=== PATIENT | male | born 1940 | race Caucasian/White ===

== ENCOUNTER 2023-10-14 13:20 | Emergency (ER) | payer MEDICARE, BC, SELFPAY ==
[2023-10-14 13:23] VITALS: BP 142/60
[2023-10-14 13:24] VITALS: BP 142/60
[2023-10-14 13:41] LABS: % Basophils 0.2 % (0-2); % Immature Granulocytes 0.7 % (0-0.5); % Lymphocytes 5.8 % (20.5-51.1); % Monocytes 13.8 % (1.7-9.3); % Neutrophils 79.5 % (42.2-75.2); Absolute Immature Granulocytes 0.1 10^3/uL (0-0.05); Absolute Lymphocytes 0.6 10^3/uL (1.2-3.4); Absolute Monocytes 1.4 10^3/uL (0.1-0.6); Absolute Neutrophils 7.9 10^3/uL (1.4-6.5); Hematocrit 38.5 % (39.0-52.0); Mean Corp Hgb Conc. 36.4 g/dL (33.0-37.0); Mean Corpuscular Hgb 32.1 pg (27.0-31.0); Mean Corpuscular Volume 88.3 fL (80.0-94.0); Mean Platelet Volume 9.1 fL (7.4-10.4); Nucleated Red Blood Cells % 0 % (-); Platelet Count 141 10^3/uL (130-400); Red Blood Cell Count 4.36 10^6/uL (4.70-6.10); Red Cell Dist. Width 12.6 % (11.5-14.5); White Blood Cell Count 9.9 10^3/uL (4.8-10.8)
[2023-10-14 13:53] LABS: ALT (SGPT) 24 U/L (0-50); AST (SGOT) 38 U/L (17-59); Albumin 4.3 g/dl (3.5-5.0); Alkaline Phosphatase 66 U/L (38-126); Blood Urea Nitrogen 21 mg/dl (9-20); Calcium 9.5 mg/dl (8.4-10.2); Carbon Dioxide 27 mmol/L (22-30); Chloride 98 mmol/L (98-107); Glucose 112 mg/dl (70-99); Potassium 3.8 mmol/L (3.5-5.1); Sodium 132 mmol/L (135-145); Total Bilirubin 3.2 mg/dl (0.2-1.3); Total Protein 7.1 g/dl (6.3-8.2); eGFR > 60.00
[2023-10-14 13:57] LABS: Urine Albumin Negative (Neg - Trace); Urine Bilirubin Negative (Negative); Urine Character Clear (Clear); Urine Color Yellow; Urine Glucose Negative (Negative); Urine Ketone 1+ (Negative); Urine Leukocyte Negative (Negative); Urine Nitrite Negative (Negative); Urine Occult Blood 2+ (Negative); Urine Urobilinogen Negative (Neg - 1+)
[2023-10-14 14:01] VITALS: BP 141/65
[2023-10-14] MEDS: MOTRIN 600 MG PO (14:01)
[2023-10-14 14:45] LABS: Urine Mucus Few
[2023-10-14 14:46] LABS: Urine Amorphous Seen
[2023-10-14 14:47] LABS: Urine Bacteria Few (Negative); Urine Red Blood Cell 16-20 /HPF (0-2); Urine White Cell 0-2 /HPF (0-5)
[2023-10-14 15:00] VITALS: BP 136/74
[2023-10-14 15:28] LABS: COVID-19 Antigen Positive (Negative)
--- NOTE | 2023-10-14 15:40 | ED.GENMED ---
History of Present Illness
General
Chief Complaint: Change in Mental Status
Source: patient
Exam Limitations: none
Time Seen by Provider: 10/14/23 13:30
Nursing documentation reviewed up to this point in time: agreed with
Travel History
Have you had any contact with someone who has COVID-19?: No
Do you have any symptoms of coronavirus? Fever > 100 degrees, chills, cough, shortness of breath, sore throat, loss of taste or smell, muscle aches, or headache?: No
History of Present Illness
History of Present Illness:
pt is a 82 y/o M with h/o pacer, HTN,
here from via EMS for fever, bodyaches, fatigue and there was found to have covid 19
pt apparently lives alone and the staff at the urgent care thought he was confused and not safe to go home
pt doesnt know why he was sent
Phy Exam
Physical Exam
Physical Exam:
GENERAL: Alert , in no apparent distress
EYE: pupils equal and reactive
NECK: Supple
ENT: b/l TM s clear, pharynx erythematous but no tonsillar hypertrophy or exudates
CARDIAC: Regular rate and rhythm, no edema
LUNGS: Clear breath sounds bilaterally, no acute respiratory distress, no wheezes/rales/rhonchi, occ cough
ABDOMEN: Soft, without focal tenderness, no r/g, no cvat, normal bowel sounds
NEUROLOGICAL: Alert and oriented, no focal neuro deficits, cranial nerves intact, send strength and sensation intact, ambulation normal
SKIN: Warm and dry, skin intact.
MUSCULOSKELETAL: No edema, well perfused.
PSYCH: Normal and appropriate interaction.
Course
Orders/Labs/Results
Orders:
Orders
10/14/23 13:34
CMP [Comprehensive Metabolic Panel] Urgent
Complete Blood Count/With Diff Urgent
Urinalysis Reflex To Culture Urgent
Date Specimen was Collected: 10/14/23
Time Specimen was Collected: 13:33
Urine Microscopic Reflex Cult Urgent
10/14/23 13:55
Ibuprofen [Motrin] 600 mg PO NOW STA
CR Chest - 2 Views Urgent
Comment:
Reason For Exam: covid, confusion
10/14/23 15:01
COVID-19 Antigen Urgent
Source: Nasal Swab
Abnormal Lab Results
10/14/23 10/14/23
13:34 15:01
RBC 4.36 L 10^6/uL
(4.70-6.10)
Hct 38.5 L %
(39.0-52.0)
MCH 32.1 H pg
(27.0-31.0)
Abs Immat Gran (auto) 0.1 H 10^3/uL
(0-0.05)
Absolute Neuts (auto) 7.9 H 10^3/uL
(1.4-6.5)
Absolute Lymphs (auto) 0.6 L 10^3/uL
(1.2-3.4)
Absolute Monos (auto) 1.4 H 10^3/uL
(0.1-0.6)
Immature Gran % 0.7 H %
(0-0.5)
Neutrophils % 79.5 H %
(42.2-75.2)
Lymphocytes % 5.8 L %
(20.5-51.1)
Monocytes % 13.8 H %
(1.7-9.3)
Sodium 132 L mmol/L
(135-145)
BUN 21 H mg/dl
(9-20)
Glucose 112 H mg/dl
(70-99)
Total Bilirubin 3.2 H mg/dl
(0.2-1.3)
Urine Ketones 1+ A
(Negative)
Ur Occult Blood Reflex 2+ A
(Negative)
Urine RBC 16-20 A /HPF
(0-2)
Urine Bacteria (Reflex) Few A
(Negative)
SARS-CoV-2 Antigen Positive A
(Negative)
10/14/23 13:34
10/14/23 13:34
Vital Signs
Initial and Last Documented VS:
Initial Vital Signs
Temp Pulse Resp BP Pulse Ox
99.3 F 67 18 142/60 97
10/14/23 13:23 10/14/23 13:23 10/14/23 13:23 10/14/23 13:23 10/14/23 13:23
Last Documented Vital Signs
Temp Pulse Resp BP Pulse Ox
98.4 F 60 16 136/74 95
10/14/23 16:06 10/14/23 15:45 10/14/23 15:45 10/14/23 15:00 10/14/23 15:45
MDM/Problems Addressed
Differential Diagnosis Includes:
covid, uti, TME,
MDM/Problems Addressed:
2-year-old male from urgent care with known COVID infection, presented there originally for body aches and a low-grade temperature but they found him to be slightly confused. He does not live with anybody and they did not contact any family to find
his baseline mental status. Patient says he feels quite well and does want to go home. 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
The patient's bili is 3 which is around his baseline. He is followed by GI doctor for this.
Patient's not hypoxic, his chest x-ray was negative. He had ambulatory pulse ox that is normal. From a COVID perspective the patient does not require admission. I reached out to his [id number] who calls him every day and knows him very well
and was able to tell me that this is his baseline. She said his COVID symptoms sounded mild to begin with and the minimal forgetfulness or confusion is chronically him and there is nothing to be concerned about as far as the change in mental status
goes. She will come and get him and be sure that he does not have any new changes and feels comfortable checking on him daily.
Patient was discharged home with stable vital signs
*Critical Care Note
Total Time (30-74mins, 75-104mins- exclusive of procedures): Not Applicable
ED Attending Note
-
Portions of this chart may have been created with voice recognition software.� Occasional wrong word or��sound alike� substitutions may have occurred due to the inherent limitations of voice recognition software.
Discharge Plan
Departure
Patient Disposition: Home (Routine Discharge)
Date of Disposition: 10/14/23
Time of Disposition: 16:04
Patient with high blood pressure during this ER visit?: No
Condition: Fair
Covid-19: Suspected COVID-19
Discharge Problem:
COVID-19
Instructions: COVID-19 (DC)
Prescriptions:
No Action
prednisone 20 mg tablet
40 mg PO DAILY 5 Days Qty: 10 0RF
Referrals:
Coni Rose MD [Family Provider] - Follow up in 2-3 days
Activity Restrictions/Additional Instructions:
YOU HAVE COVID 19
YOU CAN TAKE MOTRIN 400 MG 2-3 TIMES A DAY (OVER THE COUNTER, GET AT A PHARMACY) NEEDED FOR BODYACHES AND FEVER
YOU CAN ALSO USE COUGH SYRUP IF YOU'D LIKE
DRINK FLUIDS AND REST
STAY HOME UNTIL FEVER FREE FOR 24 HOURS
RETURN FOR: WORSENING COUGH, SHORTNESS OF BREATH, VOMITING, DEHYDRATION, CONFUSION, FEVRE, OR ANY CONCERNS.
Interventions
Interventions:
*Risk Screen - Suicide Last Done: 10/14/23 13:23
*General Assessment Last Done: 10/14/23 13:23
*Neglect/Abuse Screening Last Done: 10/14/23 13:23
ED- Fall Risk Assessment Last Done: 10/14/23 15:34
*ED COVID-19 Vaccine History Last Done: 10/14/23 13:23
*Nursing Disposition Last Done: 10/14/23 16:21
ED- Neurological Assessment Last Done: 10/14/23 13:23
Discharge Date and Time
Discharge Date/Time: 10/14/23 16:22
== END 2023-10-14 16:22 | disposition home or self-care (01) ==
LOC: EMR 13:20
PROVIDERS: Physician Assistant; EMERGENCY PHYSICIAN Emergency Medicine; FAMILY PHYSICIAN Internal Medicine
DX: U07.1 COVID-19 (principal); I10 Essential (primary) hypertension; Z60.2 Problems related to living alone
CPT/HCPCS: 99283; 71046; 80053; 81003; 81015; 85025; 87811

== ENCOUNTER 2023-10-17 00:20 | Emergency (ER) | payer MEDICARE, BC, SELFPAY ==
[2023-10-17 00:23] VITALS: BMI 24.7
[2023-10-17 00:27] VITALS: BP 161/78
[2023-10-17 00:27] LABS: Glucose - Point of Care 132 mg/dl (70-99)
[2023-10-17 00:28] VITALS: BP 161/78
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
[2023-10-17 00:37] LABS: % Basophils 0.2 % (0-2); % Eosinophils 0.1 % (0-6); % Immature Granulocytes 0.6 % (0-0.5); % Lymphocytes 16.3 % (20.5-51.1); % Monocytes 14.4 % (1.7-9.3); % Neutrophils 68.4 % (42.2-75.2); Absolute Immature Granulocytes 0.1 10^3/uL (0-0.05); Absolute Lymphocytes 1.4 10^3/uL (1.2-3.4); Absolute Monocytes 1.2 10^3/uL (0.1-0.6); Absolute Neutrophils 5.8 10^3/uL (1.4-6.5); Hematocrit 43.6 % (39.0-52.0); Hemoglobin 15.8 g/dL (13.0-18.0); Mean Corp Hgb Conc. 36.2 g/dL (33.0-37.0); Mean Corpuscular Hgb 31.8 pg (27.0-31.0); Mean Corpuscular Volume 87.7 fL (80.0-94.0); Nucleated Red Blood Cells % 0 % (-); Platelet Count 171 10^3/uL (130-400); Red Blood Cell Count 4.97 10^6/uL (4.70-6.10); Red Cell Dist. Width 12.4 % (11.5-14.5); White Blood Cell Count 8.5 10^3/uL (4.8-10.8)
[2023-10-17 00:53] LABS: ALT (SGPT) 66 U/L (0-50); AST (SGOT) 101 U/L (17-59); Albumin 4.4 g/dl (3.5-5.0); Alkaline Phosphatase 56 U/L (38-126); Blood Urea Nitrogen 38 mg/dl (9-20); Calcium 9.6 mg/dl (8.4-10.2); Carbon Dioxide 24 mmol/L (22-30); Chloride 103 mmol/L (98-107); Estimated Creatinine Clearance 47 ml/min; Glucose 125 mg/dl (70-99); Potassium 3.8 mmol/L (3.5-5.1); Sodium 135 mmol/L (135-145); Total Protein 7.6 g/dl (6.3-8.2); eGFR > 60.00
--- NOTE | 2023-10-17 04:13 | DOWNTIME ---
There was a [employer] Downtime on 10/17/2023 from 0111 to 10/17/2023 at 0405. Downtime documentation of patient's care, including medication administrations, has been reconciled in the electronic record per guidelines. Refer to the
patient's paper chart under the miscellaneous tab to see printed paper medication records and downtime forms.
[2023-10-17 06:45] VITALS: BP 158/72
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
[2023-10-17 11:25] VITALS: BP 151/83
== END 2023-10-17 11:25 | disposition home or self-care (01) ==
LOC: EMR 00:20
PROVIDERS: EMERGENCY PHYSICIAN Emergency Medicine
DX: R41.0 Disorientation, unspecified (principal); U07.1 COVID-19; I49.9 Cardiac arrhythmia, unspecified
CPT/HCPCS: 99284; 70450; 72125; 80053; 82962; 85025

== ENCOUNTER 2024-03-31 12:19 | Emergency (ER) | payer MEDICARE, BC, SELFPAY ==
[2024-03-31 12:29] VITALS: BP 115/53
--- NOTE | 2024-03-31 13:59 | ED.GENMED ---
History of Present Illness
General
Chief Complaint: Crisis Evaluation
Source: patient
Exam Limitations: none
Time Seen by Provider: 03/31/24 13:30
Nursing documentation reviewed up to this point in time: agreed with
History of Present Illness
History of Present Illness:
83-year-old male presents emergency department under 302 for suicidal ideation. He denies any suicidal ideation or plan.
Past History
Past History
ED Past Medical History: Other (Pacemaker)
ED Past Surgical History: Cardiac
Social History
Tobacco: Non-smoker
Alcohol: None
Drug: None
Personal: Single
Living: alone
Employment: Not employed
Phy Exam
Physical Exam
Physical Exam:
Physical Exam
General: no apparent distress, not acutely ill
Neck: supple. no meningeal signs. normal posterior pharynx
Heart: s1/s2 regular rate and rhythm, no murmur. equal radial
pulses.
HEENT: Pupils equal round reactive to light, EOMI
Lungs: no acute respiratory distress. clear bilaterally
Abdomen: normal bowel sounds. not tender. no CVAT
Neuro: alert and oriented. no focal neurological deficits cranial nerves II through XII intact
Skin: no rash
Psychiatric: well kept. interactive and cooperative
Extremities: no edema. no calf tenderness. negative homans. good distal pulses
Course
Orders/Labs/Results
Orders:
Orders
03/31/24 13:58
PSYCHIATRY CONSULT Urgent
Consulting Provider: Maulik Andino
Was physician already notified: Yes
Reason for consult: 302, suicidal ideation
Crisis Consult Urgent
Reason for Consult: 302 for suicidal ideation
Vital Signs
Initial and Last Documented VS:
Initial Vital Signs
Temp Pulse Resp BP Pulse Ox
98.3 F 67 18 115/53 98
03/31/24 12:29 03/31/24 12:29 03/31/24 12:29 03/31/24 12:29 03/31/24 12:29
Last Documented Vital Signs
Temp Pulse Resp BP Pulse Ox
98.3 F 65 16 118/61 99
03/31/24 12:29 03/31/24 14:40 03/31/24 14:40 03/31/24 14:40 03/31/24 14:40
MDM/Problems Addressed
Differential Diagnosis Includes:
Suicide ideation, dementia, agitation
MDM/Problems Addressed:
83-year-old male with agitation, reported suicidal ideation, however none in ED. Patient released from [address] Andino. I also see no indication for involuntary hospitalization.
Chronic conditions affecting care: Other (Dementia)
Acute Exacerbation and/or Progression of Chronic Illness: Other (Dementia)
*Critical Care Note
Total Time (30-74mins, 75-104mins- exclusive of procedures): Not Applicable
Patient Management
Social determinants of health affecting care: Living situation
Escalation/DeEscalation of care consider admission/obs:
Admit not indicated
ED Attending Note
-
Portions of this chart may have been created with voice recognition software.� Occasional wrong word or��sound alike� substitutions may have occurred due to the inherent limitations of voice recognition software.
Discharge Plan
Departure
Patient Disposition: Home (Routine Discharge)
Date of Disposition: 03/31/24
Time of Disposition: 14:33
Patient with high blood pressure during this ER visit?: No
Condition: Good
Discharge Problem:
Agitation due to dementia
Instructions: Dementia ED
Prescriptions:
No Action
potassium chloride 10 mEq Tablet Extended Release
20 meq PO DAILY
amlodipine [Norvasc] 5 mg Tablet
5 mg PO DAILY
clonidine HCl 0.2 mg Tablet
0.2 mg PO BID
pravastatin 20 mg Tablet
20 mg PO HS
hydrochlorothiazide 25 mg Tablet
25 mg PO DAILY
losartan 100 mg Tablet
100 mg PO DAILY
finasteride 5 mg Tablet
5 mg PO DAILY
nebivolol 10 mg Tablet
10 mg PO BID
Referrals:
UNKNOWN - PT DOES,NOT KNOW [Family Provider] -
Interventions
Interventions:
*Risk Screen - Suicide Last Done: 03/31/24 12:27
*General Assessment Last Done: 03/31/24 12:26
*Neglect/Abuse Screening Last Done: 03/31/24 12:27
ED- Fall Risk Assessment Last Done: 03/31/24 14:40
*ED COVID-19 Vaccine History Last Done: 03/31/24 12:26
*Nursing Disposition Last Done: 03/31/24 14:40
ED-Psychological Assessment Last Done: 03/31/24 12:28
Discharge Date and Time
Print Language: LITHUANIAN
[2024-03-31 14:40] VITALS: BP 118/61
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
== END 2024-03-31 15:00 | disposition home or self-care (01) ==
LOC: EMR 12:19
PROVIDERS: CONSULT PHYSICIAN Psychiatry & Neurology Psychiatry; EMERGENCY PHYSICIAN Emergency Medicine
DX: R45.851 Suicidal ideations (principal); F03.911 Unspecified dementia, unspecified severity, with agitation; R45.1 Restlessness and agitation; I10 Essential (primary) hypertension; Z95.0 Presence of cardiac pacemaker
CPT/HCPCS: 99284

== ENCOUNTER 2025-01-28 16:23 | Emergency (ER) | payer MEDICARE, SELFPAY ==
[2025-01-28 16:29] VITALS: BMI 28.8
[2025-01-28 16:30] VITALS: BP 188/82
[2025-01-28 17:00] VITALS: BP 180/84
--- NOTE | 2025-01-28 17:08 | ED.GENMED ---
History of Present Illness
General
Chief Complaint: Change in Mental Status
Source: patient
Exam Limitations: none
Time Seen by Provider: 01/28/25 16:45
Nursing documentation reviewed up to this point in time: agreed with
History of Present Illness
History of Present Illness:
84-year-old male from a adult daycare center he was agitated referred here no trauma no fever only complains of a rash on his back he is looking for his primary care provider who is no longer on staff here no problem urinating no fevers
Past History
Past History
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
ED Past Surgical History: Cardiac
Social History
Tobacco: Non-smoker
Alcohol: None
Drug: None
Personal: Single
Living: alone
Employment: Not employed
Review of Systems
Review of Systems
All Other Systems: Not applicable
Constitutional: Denies fever or chills
EENT: Reports no symptoms
Respiratory: Reports no symptoms
Cardiac: Reports no symptoms
ABD/GI: Reports no symptoms
Skin: Reports itching and rash
Phy Exam
Physical Exam
Physical Exam:
Physical Exam
General: no apparent distress, not acutely ill
Neck: No tongue bite no posterior neck pain
Heart: s1/s2 regular rate and rhythm, no murmur. equal radial pulses.
Lungs: no acute respiratory distress. clear bilaterally
Abdomen: Nontender
Neuro: Moves all extremities, oriented to person
Skin: Red dermatitis over the shoulders/upper back looks like it has been recently scratched
Psychiatric: Slightly suspicious but cooperative
Extremities: no edema.
Course
Orders/Labs/Results
Orders:
Orders
01/28/25 17:05
Lorazepam [Ativan] 0.5 mg PO NOW STA
Quetiapine Fumarate [Seroquel] 25 mg PO NOW STA
01/28/25 17:06
Divalproex Delayed Rel. 12 Hr [Depakote (12 Hr Release)] 375 mg PO NOW STA
01/28/25 18:01
Hydrocortisone [Hydrocortisone 2.5% Ointment] See Dose Instructions TOPICAL NOW STA
Vital Signs
Initial and Last Documented VS:
Initial Vital Signs
Temp Pulse Resp BP Pulse Ox
97.9 F 88 20 188/82 97
01/28/25 16:30 01/28/25 16:30 01/28/25 16:30 01/28/25 16:30 01/28/25 16:30
Last Documented Vital Signs
Temp Pulse Resp BP Pulse Ox
97.9 F 83 17 188/82 98
01/28/25 16:30 01/28/25 16:45 01/28/25 16:45 01/28/25 16:30 01/28/25 16:45
MDM/Problems Addressed
Differential Diagnosis Includes:
Dementia agitation infection no signs of trauma does not look dehydrated
MDM/Problems Addressed:
Agitation and dementia.
Chronic conditions affecting care: Neurological disorder
Acute Exacerbation and/or Progression of Chronic Illness: Neurological disorder
*Critical Care Note
Total Time (30-74mins, 75-104mins- exclusive of procedures): Not Applicable
Update Note
Update Note:
Update, patient's med list reviewed, noted to be comfort measures, he looks comfortable here he is cooperative, he knows he is at the hospital he knows he is in [place] he is afebrile no signs of trauma he does have a second dermatitis on his
back we will start some hydrocortisone given his evening dose of p.o. meds
6 PM reevaluation patient comfortable calm and cooperative
ED Attending Note
-
Portions of this chart may have been created with voice recognition software.� Occasional wrong word or��sound alike� substitutions may have occurred due to the inherent limitations of voice recognition software.
Discharge Plan
Departure
Patient Disposition: Home (Routine Discharge)
Date of Disposition: 01/28/25
Time of Disposition: 18:04
Patient with high blood pressure during this ER visit?: No
Discharge Problem:
Rash
Instructions: Dementia (DC), Dermatitis ( Contact )
Prescriptions:
No Action
potassium chloride 10 mEq Tablet Extended Release
20 meq PO DAILY
amlodipine [Norvasc] 5 mg Tablet
5 mg PO DAILY
clonidine HCl 0.2 mg Tablet
0.2 mg PO BID
pravastatin 20 mg Tablet
20 mg PO HS
hydrochlorothiazide 25 mg Tablet
25 mg PO DAILY
losartan 100 mg Tablet
100 mg PO DAILY
finasteride 5 mg Tablet
5 mg PO DAILY
nebivolol 10 mg Tablet
10 mg PO BID
Referrals:
UNKNOWN - PT DOES,NOT KNOW [Family Provider]
Activity Restrictions/Additional Instructions:
Use hydrocortisone cream twice a day for 5 to 7 days
Continue your other medications as prescribed
Interventions
Interventions:
*Risk Screen - Suicide Last Done: 01/28/25 16:41
*General Assessment Last Done: 01/28/25 16:30
*Neglect/Abuse Screening Last Done: 01/28/25 16:30
*ED- Fall Risk Assessment Last Done: 01/28/25 16:41
*ED COVID-19 Vaccine History Last Done: 01/28/25 16:30
ED- Neurological Assessment Last Done: 01/28/25 16:38
ED Swallowing Screen Last Done: 01/28/25 16:47
Discharge Date and Time
Print Language: BELGIAN
[2025-01-28] MEDS: SEROQUEL 25 MG PO (17:14)
[2025-01-28] MEDS: ATIVAN 0.5 MG PO (17:14)
[2025-01-28 18:00] VITALS: BP 151/84
[2025-01-28] MEDS: DEPAKOTE (12 HR RELEASE) 375 MG PO (18:15)
[2025-01-28] MEDS: HYDROCORTISONE 2.5% OINTMENT 1 APPLIC TOPICAL (18:15)
== END 2025-01-28 19:57 | disposition home or self-care (01) ==
LOC: EMR 16:23
PROVIDERS: EMERGENCY PHYSICIAN Emergency Medicine
DX: R21 Rash and other nonspecific skin eruption (principal); F03.911 Unspecified dementia, unspecified severity, with agitation; Z95.0 Presence of cardiac pacemaker
CPT/HCPCS: 99283